=== PATIENT | male | born 1980 | race Caucasian/White ===

== ENCOUNTER 2017-03-02 19:44 | Emergency (ER) | payer MEDICAID, OTHER ==
[~2017-03-02] VITALS: Ht 180.3 cm; Wt 79.4 kg
[2017-03-02] MEDS ORDERED: cefTRIAXone 1GM/50ML D5W 50 ML IV ONE (20:00)
[2017-03-02 22:47] VITALS: BP 147/87
== END 2017-03-02 23:19 | disposition home or self-care (01) ==
LOC: ER 19:44
DX: S81.812A Laceration without foreign body, left lower leg, initial encounter (principal); V86.59XA Driver of other special all-terrain or other off-road motor vehicle injured in nontraffic accident, initial encounter; Y93.89 Activity, other specified; Y99.8 Other external cause status; Y92.89 Other specified places as the place of occurrence of the external cause
CPT/HCPCS: 12032; 73590; 96365; 96366; 99285; J0696; 12002; J7060

== ENCOUNTER 2017-05-04 09:12 | Emergency (ER) | payer MEDICAID ==
[~2017-05-04] VITALS: Ht 180.3 cm; Wt 79.4 kg
[2017-05-04 10:51] VITALS: BP 129/95
== END 2017-05-04 11:24 | disposition home or self-care (01) ==
LOC: ER 09:12
DX: S81.819A Laceration without foreign body, unspecified lower leg, initial encounter (principal); X58.XXXA Exposure to other specified factors, initial encounter; Y93.89 Activity, other specified; Y99.8 Other external cause status; Y92.89 Other specified places as the place of occurrence of the external cause
CPT/HCPCS: 93971

== ENCOUNTER 2017-05-12 14:11 | Emergency (ER) | payer MEDICAID ==
[~2017-05-12] VITALS: Ht 180.3 cm; Wt 79.4 kg
[2017-05-12 14:30] VITALS: BP 118/79
== END 2017-05-12 15:14 | disposition home or self-care (01) ==
LOC: ER 14:11
DX: S81.812D Laceration without foreign body, left lower leg, subsequent encounter (principal); B96.89 Other specified bacterial agents as the cause of diseases classified elsewhere

== ENCOUNTER 2017-05-22 14:51 | Emergency (ER) | payer MEDICAID ==
[~2017-05-22] VITALS: Ht 180.3 cm; Wt 79.9 kg
[2017-05-22 14:53] VITALS: BP 131/89
[2017-05-22] MEDS ORDERED: cefTRIAXone SOD 1,000 MG VL IM ONE (15:30)
== END 2017-05-22 16:07 | disposition home or self-care (01) ==
LOC: ER 14:51
DX: S81.812D Laceration without foreign body, left lower leg, subsequent encounter (principal); Z48.01 Encounter for change or removal of surgical wound dressing; M79.605 Pain in left leg
CPT/HCPCS: 96372; 99283; J0696

== ENCOUNTER 2019-07-12 19:47 | Emergency (ER) | payer MEDICAID | END 2019-07-12 20:48 | disposition left against medical advice (07) | LOC: ER 19:51 | DX: T14.8XXA Other injury of unspecified body region, initial encounter (principal); Z53.21 Procedure and treatment not carried out due to patient leaving prior to being seen by health care provider; X58.XXXA Exposure to other specified factors, initial encounter; Y93.89 Activity, other specified; Y99.8 Other external cause status; Y92.89 Other specified places as the place of occurrence of the external cause ==